=== PATIENT | male | born 1975 | race Caucasian/White ===

== ENCOUNTER 2017-11-06 16:41 | Emergency (ER) | payer MEDICAID ==
[2017-11-06] MEDS ORDERED: Sodium Chloride 0.9% 1,000 ML IV STA (17:42)
[2017-11-06 18:26] LABS: BASO # 0.1 K/uL (0.0-0.2); BASO % 0.6 % (0.0-2.0); EOS # 0.2 K/uL (0.0-0.7); EOS % 2.6 % (0.0-4.0); HEMOGLOBIN 14.4 g/dL (12.0-18.0); LYMPH % 22.5 % (20.0-40.0); MEAN CELL VOLUME 93.3 fl (80.0-94.0); MEAN CORPUSCULAR HGB CONC 33.2 g/dL (33.0-37.0); MEAN PLATELET VOLUME 8.9 fl (7.2-11.7); MONO # 0.8 K/uL (0.0-0.8); MONO % 8.9 % (0.0-10.0); NEUT % 65.4 % (50.0-75.0); RBC 4.64 Mil/uL (4.40-5.90); RED CELL DISTRIBUTION WIDTH 14.4 % (11.5-14.5); WHITE BLOOD COUNT 9.1 K/uL (4.8-10.8)
[2017-11-06 18:47] LABS: ALB/GLOB RATIO 1.1 (1.0-2.1); ALBUMIN 4.2 g/dL (3.5-5.0); ALT/SGPT 30 U/L (21-72); AST/SGOT 56 U/L (17-59); BLOOD UREA NITROGEN 13 mg/dl (9-20); CALCIUM 9.2 mg/dL (8.4-10.2); GFR AFRICAN-AMERICAN > 60; GFR NON-AFRICAN AMERICAN > 60; LIPASE 514 U/L (23-300)
[2017-11-06 19:09] LABS: SQUAMOUS EPITHIAL < 1 /hpf (0-5); URINE BILIRUBIN NEGATIVE (NEGATIVE); URINE BLOOD NEGATIVE (NEGATIVE); URINE CLARITY SLIGHTY-CLOUDY (Clear); URINE COLOR YELLOW (YELLOW); URINE GLUCOSE (UA) NEG (Normal); URINE LEUKOCYTE ESTERASE NEG Leu/uL (Negative); URINE PROTEIN 30 mg/dL (NEGATIVE); URINE UROBILINOGEN 0.2-1.0 mg/dL (0.2-1.0)
--- NOTE | 2017-11-06 19:45 | ED PDOC ---
HPI: Abdomen Time Seen by Provider: 11/06/17 16:58 Chief Complaint (Nursing): Abdominal Pain Chief Complaint (Provider): Diffuse abdominal pain, diarrhe a History Per: Patient History/Exam Limitations: no limitations Onset/Duration Of Symptoms: Days Outside of [place] travel?: No Additional Complaint(s): 42 yo male with no medical problems presents with diffuse abdominal pain and diarrhea since yesterday. No fever/chills. No blood or mucous in the diarrhea. Pt states he is able to tolerate PO. Pt states he has not drank alcohol in weeks. Past Medical History Reviewed: Historical Data, Nursing Documentation, Vital Signs Vital Signs: Last Vital Signs Temp 97.9 F 11/06/17 19:42 Pulse 72 11/06/17 19:42 Resp 18 11/06/17 19:42 BP 121/70 11/06/17 19:42 Pulse Ox 100 11/06/17 19:42 - Medical History PMH: No Chronic Diseases Denies: Chronic Kidney Disease - Surgical History Surgical History: No Surg Hx - Family History Family History: States: Unknown Family Hx - Living Arrangements Living Arrangements: With Family - Social History Current smoker - smoking cessation education provided: No - Immunization History Hx Tetanus Toxoid Vaccination: No (unknown) Hx Influenza Vaccination: No (unknown) Hx Pneumococcal Vaccination: No (unknonw) - Home Medications Home Medications: Ambulatory Orders Medication Instructions Recorded Dicyclomine [Bentyl] 20 mg PO Q6H PRN #20 tab 11/06/17 - Allergies Allergies/Adverse Reactions: Allergies Allergy/AdvReac Type Severity Reaction Status Date / Time No Known Allergies Allergy Verified 11/06/17 16:53 Review of Systems ROS Statement: Except As Marked, All Systems Reviewed And Found Negative Constitutional: Negative for: Fever, Chills Gastrointestinal: Positive for: Abdominal Pain, Diarrhea. Negative for: Nausea , Vomiting Physical Exam - Reviewed Nursing Documentation Reviewed: Yes Vital Signs Reviewed: Yes - Physical Exam Appears: Positive for: Well, Non-toxic, No Acute Distress Head Exam: Positive for: ATRAUMATIC, NORMAL INSPECTION, NORMOCEPHALIC Skin: Positive for: Normal Color, Warm, DRY Eye Exam: Positive for: Normal appearance ENT: Positive for: Normal ENT Inspection Neck: Positive for: Normal, Painless ROM Cardiovascular/Chest: Positive for: Regular Rate, Rhythm Respiratory: Positive for: CNT, Normal Breath Sounds Gastrointestinal/Abdominal: Positive for: Normal Exam, Soft. Negative for: Tenderness Back: Positive for: Normal Inspection Extremity: Positive for: Normal ROM Neurologic/Psych: Positive for: Alert, Oriented - Laboratory Results Result Diagrams: 11/06/17 18:20 11/06/17 18:20 - ECG O2 Sat by Pulse Oximetry: 100 Medical Decision Making Medical Decision Making: Pt sleeping comfortable in bed. Reports feeling better on re-evaluation. Labs normal. No episodes of diarrhea in ER. Discussed with Dr. Conklin. Disposition - Clinical Impression Clinical Impression: Viral gastroenteritis - Disposition Disposition: Routine/Home Disposition Time: 19:45 Condition: STABLE Prescriptions: Dicyclomine [Bentyl] 20 mg PO Q6H PRN #20 tab PRN Reason: Cramping Instructions: Viral Gastroenteritis
[2017-11-06 20:31] VITALS: RESP 16; TEMP 98; O2SAT 99
[2017-11-06 20:45] VITALS: BP 119/82; PULSE 88
== END 2017-11-06 20:48 | disposition home or self-care (01) ==
LOC: H.ER 16:41
DX: A08.4 Viral intestinal infection, unspecified (principal)
CPT/HCPCS: 80053; 81003; 83690; 85025; 87086; 96374; 99285; J1885; J7030

== ENCOUNTER 2018-03-12 03:02 | Emergency (ER) | payer MEDICAID, OTHER ==
[2018-03-12 03:21] VITALS: TEMP 98.2
--- NOTE | 2018-03-12 04:06 | ED PDOC ---
HPI: General Adult Time Seen by Provider: 03/12/18 03:29 Chief Complaint (Nursing): Cough, Cold, Congestion Chief Complaint (Provider): Bodyaches, chills History Per: Patient History/Exam Limitations: no limitations Onset/Duration Of Symptoms: Days Additional History Per: Patient Additional Complaint(s): 42yo male, comes to ER reporting bodyaches, chills, and states symptoms are ongoing since yesterday. He also reports a mild cough, chest pain due to the cough, nausea, and generalized malaise. Patient has not taken any medication for his symptoms. No other complaints No PMD. Past Medical History Reviewed: Historical Data, Nursing Documentation, Vital Signs Vital Signs: Last Vital Signs Temp 98.2 F 03/12/18 03:19 Pulse 96 H 03/12/18 03:19 Resp 16 03/12/18 03:19 BP 140/86 03/12/18 03:19 Pulse Ox 98 03/12/18 03:19 - Medical History PMH: No Chronic Diseases Denies: Chronic Kidney Disease - Surgical History Surgical History: No Surg Hx - Family History Family History: States: Unknown Family Hx - Immunization History Hx Tetanus Toxoid Vaccination: No (unknown) Hx Influenza Vaccination: No (unknown) Hx Pneumococcal Vaccination: No (unknonw) - Home Medications Home Medications: Ambulatory Orders Medication Instructions Recorded Dicyclomine [Bentyl] 20 mg PO Q6H PRN #20 tab 11/06/17 Azithromycin [Z-Wil] 250 mg PO ASDIR #6 tab 03/12/18 - Allergies Allergies/Adverse Reactions: Allergies Allergy/AdvReac Type Severity Reaction Status Date / Time No Known Allergies Allergy Verified 03/12/18 03:19 Review of Systems ROS Statement: Except As Marked, All Systems Reviewed And Found Negative Constitutional: Positive for: Fever, Chills, Weakness Respiratory: Positive for: Cough Gastrointestinal: Positive for: Nausea Physical Exam - Reviewed Nursing Documentation Reviewed: Yes Vital Signs Reviewed: Yes - Physical Exam Appears: Positive for: Non-toxic, No Acute Distress Head Exam: Positive for: ATRAUMATIC, NORMAL INSPECTION, NORMOCEPHALIC Skin: Positive for: Normal Color Eye Exam: Positive for: Normal appearance, EOMI, PERRL ENT: Positive for: Normal ENT Inspection. Negative for: Pharyngeal Erythema, Tonsillar Exudate, Tonsillar Swelling Neck: Positive for: Normal, Supple Cardiovascular/Chest: Positive for: Regular Rate, Rhythm Respiratory: Positive for: Normal Breath Sounds Gastrointestinal/Abdominal: Positive for: Normal Exam, Soft Back: Positive for: Normal Inspection Extremity: Positive for: Normal ROM Neurologic/Psych: Positive for: Alert, Oriented. Negative for: Motor/Sensory Deficits - ECG O2 Sat by Pulse Oximetry: 98 (RA) Pulse Ox Interpretation: Normal - Progress Re-evaluation Time: 05:36 Condition: Re-examined, Improved Medical Decision Making Medical Decision Making: Impression: Viral syndrome, URI, r/o Pneumonia Plan: -- Labs -- Rapid strep -- Rapid Flu -- Urine drug screen -- Motrin 400mg PO -- Pepcid 20mg PO 0610 Patient negative for strep. Patient negative for flu. Patient remains awake, alert, oriented x 3 and is laying in bed comfortably; patient is stable for discharge home. Scribe Attestation: Documented by Melisa Hoover, acting as a scribe for Harleen Conklin MD. Provider Scribe Attestation: All medical record entries made by the Scribe were at my direction and personally dictated by me. I have reviewed the chart and agree that the record accurately reflects my personal performance of the history, physical exam, medical decision making, and the department course for this patient. I have also personally directed, reviewed, and agree with the discharge instructions and disposition. Disposition - Clinical Impression Clinical Impression: Flu-like symptoms, URI (upper respiratory infection) - Patient ED Disposition Is Patient to be Admitted: No Doctor Will See Patient In The: Office Counseled Patient/Family Regarding: Studies Performed, Diagnosis, Need For Followup - Disposition Referrals: [facility] [Outside] Disposition: Routine/Home Disposition Time: 05:42 Condition: GOOD Additional Instructions: AVRIL BURRELL, thank you for letting us take care of you today. Your provider was Harleen Conklin MD and you were treated for FEELS WEAK. The emergency medical care you received today was directed at your acute symptoms. If you were prescribed any medication, please fill it and take as directed. It may take several days for your symptoms to resolve. Return to the Emergency Department if your symptoms worsen, do not improve, or if you have any other problems. Please contact your doctor or call one of the physicians/clinics you have been referred to that are listed on the Patient Visit Information form that is included in your discharge packet. Bring any paperwork you were given at discharge with you along with any medications you are taking to your follow up visit. Our treatment cannot replace ongoing medical care by a primary care provider outside of the emergency department. Thank you for allowing the [facility] team to be part of your care today. If you had an X-Ray or CT scan: A Radiologist will review the ED reading if any change in treatment is needed we will contact you. If you had a blood, urine, or wound culture: It will take several days for the results, if any change in treatment is needed we will contact you. If you had an STI test: It will take 48 hours for the results. Please call after 1 week if you have not heard back. Prescriptions: Azithromycin [Z-Wil] 250 mg PO ASDIR #6 tab Instructions: Acute Bronchitis
[2018-03-12 06:54] VITALS: BP 138/64; PULSE 88; RESP 22; O2SAT 99
--- NOTE | 2018-03-12 08:19 | RAD ---
Date of service: 03/12/2018 HISTORY: fever cough COMPARISON: No prior. TECHNIQUE: Chest PA and lateral FINDINGS: LUNGS: No active pulmonary disease. PLEURA: No significant pleural effusion identified. No pneumothorax apparent. CARDIOVASCULAR: No aortic atherosclerotic calcification present. Normal cardiac size. No pulmonary vascular congestion. OSSEOUS STRUCTURES: No significant abnormalities. VISUALIZED UPPER ABDOMEN: Normal. OTHER FINDINGS: None. IMPRESSION: No acute cardiopulmonary disease appreciated.
== END 2018-03-12 06:54 | disposition home or self-care (01) ==
LOC: H.ER 03:02
DX: J06.9 Acute upper respiratory infection, unspecified (principal); J11.1 Influenza due to unidentified influenza virus with other respiratory manifestations

== ENCOUNTER 2018-03-30 11:33 | Emergency (ER) | payer MEDICAID, OTHER ==
[2018-03-30 12:01] VITALS: BMI 21.1
[2018-03-30 12:03] VITALS: BP 143/86; PULSE 96; RESP 20; TEMP 97; O2SAT 98
[2018-03-30] MEDS ORDERED: Albuterol-Ipratrop 3 mg / 0.5 (3 ml) UD INH STA (12:48)
[2018-03-30] MEDS ORDERED: Albuterol 0.083% Inhal Sol (2.5 mg/3 mL) UD INH STA (12:48)
[2018-03-30] MEDS ORDERED: Albuterol 0.083% Inhal Sol (2.5 mg/3 mL) UD ONE (13:18)
--- NOTE | 2018-03-30 13:59 | ED PDOC ---
HPI: CCC, URI, Sore Throat Time Seen by Provider: 03/30/18 12:16 Chief Complaint (Nursing): Flu-like Symptoms Chief Complaint (Provider): Cough, Throat Pain, Bodyaches History Per: Patient History/Exam Limitations: no limitations Have you had recent travel within the past 21 days to any of the following countries: [place], [place], [place] or [place]?: No Onset/Duration Of Symptoms: Days (1x week) Current Symptoms Are (Timing): Still Present Location Of Pain: Throat Associated Symptoms: Fever (tactile), Chills (bodyaches), Sore Throat, Cough (dry). denies: Neck Pain ((-) stiffness), Nausea, Vomiting, Diarrhea, Other (urinary symptoms, headache, dizziness, abdominal pain) Severity: Moderate Additional Complaint(s): 42 year old male with no past medical history presents to the ED for an evaluation of a dry cough that started 1x week ago. Patient reports having associated symptoms of throat pain, bodyaches, a tactile fever, and chills. Patient report staking over the counter cough syrup with no relief of symptoms. Otherwise: (-) recent travel, (-) nausea, (-) vomiting, (-) diarrhea, (-) abdominal pain, (-) urinary symptoms, (-) neck pain, (-) neck stiffness, (- )headaches, (-) dizziness, (-) chest pain, (-) dyspnea, (-) hemoptysis, (-) upper back pain, (-) recent prolonged immobility. PMD: None. Past Medical History Reviewed: Historical Data, Nursing Documentation, Vital Signs Vital Signs: Last Vital Signs Temp 97 F L 03/30/18 12:01 Pulse 96 H 03/30/18 12:01 Resp 20 03/30/18 12:01 BP 143/86 03/30/18 12:01 Pulse Ox 98 03/30/18 12:01 - Medical History PMH: No Chronic Diseases - Surgical History Other surgeries: fractured jaw repair - Family History Family History: States: Unknown Family Hx - Social History Current smoker - smoking cessation education provided: Yes (5x cigarettes daily) Alcohol: Social Drugs: Cannabis (daily) - Home Medications Home Medications: Ambulatory Orders Medication Instructions Recorded Dicyclomine [Bentyl] 20 mg PO Q6H PRN #20 tab 07/02/18 Acetaminophen [Acetaminophen 8 650 mg PO Q8 PRN #21 tablet.er 03/30/18 Hour] Albuterol Sulfate [Ventolin Hfa] 1 puff IH DAILY PRN #1 unit 03/30/18 Fluticasone Nasal [Flonase] 1 actuation NS DAILY #1 unit 03/30/18 RX: Azithromycin [Z-Wil] 250 mg PO DAILY #6 tab 03/30/18 RX: Promethazine DM [Phenergan DM 5 ml PO Q6 PRN #150 ml 03/30/18 Syrup] - Allergies Allergies/Adverse Reactions: Allergies Allergy/AdvReac Type Severity Reaction Status Date / Time No Known Allergies Allergy Verified 03/30/18 12:09 Review of Systems ROS Statement: Except As Marked, All Systems Reviewed And Found Negative Constitutional: Positive for: Fever (tactile), Chills, Other (bodyaches) ENT: Positive for: Throat Pain Cardiovascular: Negative for: Chest Pain Respiratory: Positive for: Cough (dry). Negative for: Shortness of Breath, Hemoptysis Gastrointestinal: Negative for: Nausea, Vomiting, Abdominal Pain, Diarrhea Genitourinary Male: Negative for: Dysuria, Frequency Musculoskeletal: Negative for: Neck Pain ((-) neck stiffness) Neurological: Negative for: Headache, Dizziness Physical Exam - Reviewed Nursing Documentation Reviewed: Yes Vital Signs Reviewed: Yes - Physical Exam Comments: GENERAL APPEARANCE: Patient is awake, alert, oriented x 3, resting comfortably, in no acute distress. SKIN: Warm, dry; (-) cyanosis. ENMT: Mucous membranes moist. Airway patent: (-) stridor. Nose: (+) clear rhinorrhea. Pharynx: (+) erythema, (-) exudate, (-) swelling. TMs: (-)bulging, (-) erythema. Ear canals patent (-) vesicles (-) cerumen impaction (-) erythema (-) exudate. (-) Sinus tenderness. NECK: Supple, FROM (-) tenderness, (-) stiffness, (-) lymphadenopathy. CHEST AND RESPIRATORY: (-) rales, (-) wheezes; right middle and lower lobe: (+) rhonchi. Respirations even and non-labored, speaking in full sentences. HEART AND CARDIOVASCULAR: (-) irregularity ABDOMEN: Soft (-) tenderness (-) distention EXTREMITIES: (-) deformity; (-) edema. NEURO AND PSYCH: Mental status as above. Cranial nerves grossly intact. Gait: steady. Speech: clear. (-) facial asymmetry - ECG O2 Sat by Pulse Oximetry: 98 (RA) Pulse Ox Interpretation: Normal Medical Decision Making Medical Decision Makin Clinical impression: 42 year old male with cough, bodyaches, tobacco abuse; rule out pneumonia. Initial plan: * XRay chest 2 views * albuterol 0.083% inhal soln UD 2.5 mg INH * duoneb 3 ml UD 3 ml INH * toradol 30 mg IM once * influenza A B * rapid strep a antigen 1345 Rapid Strep: Negative Influenza: Negative CXR: (+) RML perihilar thickening Azithromycin 500mg PO ordered. 1400 On re-evaluation, patient reports improvement of symptoms. On exam, patient remains AAOx3, in no acute distress. Lungs clear to auscultation, cardiac RRR, repeat neuro exam shows no focal findings. Vitals stable. Lab/Diagnostic results d/w the patient in great detail. Diagnosis of cough, congestion, bodyaches, bronchitis; tobacco abuse d/w the patient. Based on history, exam and diagnostic results, plan will be for outpatient follow up with clinic. Patient instructed to follow-up with pmd / referral provided / the clinic in 1- 2 days without fail. Advised to take medication as prescribed. Return to the emergency room at any time for any new or worsening symptoms. Patient states he fully agrees with and understands discharge instructions. States that he agrees with the plan and disposition. Verbalized and repeated discharge instructions and plan. I have given the patient opportunity to ask any additional questions. Scribe Attestation: Documented by Martina Davis, acting as a scribe for Martina Granado Provider Scribe Attestation: All medical record entries made by the Scribe were at my direction and personally dictated by me. I have reviewed the chart and agree that the record accurately reflects my personal performance of the history, physical exam, medical decision making, and the department course for this patient. I have also personally directed, reviewed, and agree with the discharge instructions and disposition. Disposition - Clinical Impression Clinical Impression: Cough in adult, Nasal congestion, Bronchitis, Tobacco abuse - Patient ED Disposition Is Patient to be Admitted: No Counseled Patient/Family Regarding: Studies Performed, Diagnosis, Need For Followup, Rx Given, Smoking Cessation - Disposition Referrals: [facility] [Outside] Disposition: Routine/Home Disposition Time: 14:00 Condition: STABLE Additional Instructions: The emergency medical care you received today was directed at your acute symptoms. If you were prescribed any medication, please fill it and take as directed. It may take several days for your symptoms to resolve. Return to the Emergency Department if your symptoms worsen, do not improve, or if you have any other problems. Please contact your doctor in 2 days for re-evaluation and follow up / or call one of the physicians/clinics you have been referred to that are listed on the Patient Visit Information form that is included in your discharge packet. Bring any paperwork you were given at discharge with you along with any medications you are taking to your follow up visit. Our treatment cannot replace ongoing medical care by a primary care provider (PCP) outside of the emergency department. Prescriptions: Acetaminophen [Acetaminophen 8 Hour] 650 mg PO Q8 PRN #21 tablet.er PRN Reason: bodyaches Albuterol Sulfate [Ventolin Hfa] 1 puff IH DAILY PRN #1 unit PRN Reason: Shortness Of Breath RX: Azithromycin [Z-Wil] 250 mg PO DAILY #6 tab Fluticasone Nasal [Flonase] 1 actuation NS DAILY #1 unit RX: Promethazine DM [Phenergan DM Syrup] 5 ml PO Q6 PRN #150 ml PRN Reason: Cough Instructions: Cough in Adults, Smoking: Not Just Harmful to Your Lungs and Heart, Acute Bronchitis Forms: [facility] (Urdu) Print Language: [place] - POA Present On Arrival: None Results - Lab Results Lab Results: 03/30/18 03/30/18 12:55 12:55 Influenza Typ A,B (EIA) Negative for flu a/b Grp A Beta Strep Ag Negative
--- NOTE | 2018-03-30 14:38 | RAD ---
Date of service: 03/30/2018 HISTORY: cough r/o pna COMPARISON: 03/12/2018 TECHNIQUE: Chest PA and lateral FINDINGS: LUNGS: No pulmonary infiltrate. Several small calcified granulomas in both upper lobes. PLEURA: No significant pleural effusion identified. No pneumothorax apparent. CARDIOVASCULAR: No aortic atherosclerotic calcification present. Normal cardiac size. No pulmonary vascular congestion. OSSEOUS STRUCTURES: No significant abnormalities. VISUALIZED UPPER ABDOMEN: Normal. OTHER FINDINGS: None. IMPRESSION: No active disease.
== END 2018-03-30 14:17 | disposition home or self-care (01) ==
LOC: H.ER 11:33
DX: M79.10 Myalgia, unspecified site (principal); R05 Cough; R09.81 Nasal congestion; J40 Bronchitis, not specified as acute or chronic; F17.210 Nicotine dependence, cigarettes, uncomplicated
CPT/HCPCS: 71046; 87070; 87430; 87804; 94640; 96372; 99282; J1885

== ENCOUNTER 2018-05-17 11:23 | Emergency (ER) | payer MEDICAID, OTHER ==
[2018-05-17 11:23] VITALS: BMI 21.1
[2018-05-17 11:54] VITALS: RESP 18
[2018-05-17] MEDS ORDERED: Amoxicillin-Clav 875-125 mg Tab PO STA (13:18)
[2018-05-17] MEDS ORDERED: Amoxicillin-Clav 875-125 mg Tab PO ONE (13:29)
--- NOTE | 2018-05-17 13:38 | ED PDOC ---
HPI: Dental Pain/Injury Time Seen by Provider: 05/17/18 12:17 Chief Complaint (Nursing): Dental Pain Chief Complaint (Provider): Dental Pain History Per: Patient History/Exam Limitations: no limitations Onset/Duration Of Symptoms: Days (x2) Current Symptoms Are (Timing): Still Present Additional Complaint(s): 42 year old male with a history of dental infections presents to the ED for evaluation of a right sided upper toothache, described as sharp, shooting pain, for the past two days, which radiates to the jaw. Denies taking meds prior to arrival, recent dental work, fever, throat pain, dysphagia, drooling, muffled voice. PMD: none provided Past Medical History Reviewed: Historical Data, Nursing Documentation, Vital Signs Vital Signs: Last Vital Signs Temp 98.7 F 05/17/18 11:54 Pulse 70 05/17/18 11:54 Resp 18 05/17/18 11:54 BP 137/84 05/17/18 11:54 Pulse Ox 99 05/17/18 11:54 - Medical History PMH: No Chronic Diseases - Surgical History Other surgeries: plate in jaw s/p fracture repair - Family History Family History: States: Unknown Family Hx - Social History Current smoker - smoking cessation education provided: Yes (3-4 cigs daily) Alcohol: Social Drugs: Cocaine, Opiates, Other (benzos) - Home Medications Home Medications: Ambulatory Orders Medication Instructions Recorded Dicyclomine [Bentyl] 20 mg PO Q6H PRN #20 tab 11/06/17 Acetaminophen [Acetaminophen 8 650 mg PO Q8 PRN #21 tablet.er 03/30/18 Hour] Albuterol Sulfate [Ventolin Hfa] 1 puff IH DAILY PRN #1 unit 03/30/18 Fluticasone Nasal [Flonase] 1 actuation NS DAILY #1 unit 03/30/18 RX: Azithromycin [Z-Wil] 250 mg PO DAILY #6 tab 03/30/18 RX: Promethazine DM [Phenergan DM 5 ml PO Q6 PRN #150 ml 03/30/18 Syrup] Acetaminophen [Acetaminophen 8 650 mg PO Q8 PRN #21 tablet.er 05/17/18 Hour] Amoxicillin/Clavulanate [Augmentin 1 tab PO BID #14 tab 05/17/18 875 MG-125 MG] RX: Naproxen 500 mg PO BID PRN #20 tab 05/17/18 - Allergies Allergies/Adverse Reactions: Allergies Allergy/AdvReac Type Severity Reaction Status Date / Time No Known Allergies Allergy Verified 05/17/18 12:25 Review of Systems ROS Statement: Except As Marked, All Systems Reviewed And Found Negative Constitutional: Negative for: Fever ENT: Positive for: Other (sharp right sided upper toothache radiating to jaw). Negative for: Throat Pain (or trouble swallowing) Physical Exam - Reviewed Nursing Documentation Reviewed: Yes Vital Signs Reviewed: Yes - Physical Exam Comments: GENERAL APPEARANCE: Patient is awake, alert, oriented x 3, in no acute distress. Resting comfortably. SKIN: Warm, dry; (-) cyanosis. NECK: Supple, FROM ENMT: (-) sinus swelling or tenderness. Upper right second premolar: (+) cracked dentition and dental rot with surrounding gingival erythema, tenderness, and mild edema (-) fluctuance. (+) Poor oral dentition throughout with multiple caries and multiple extracted teeth. Pharynx: clear, uvula midline (-) exudate, (-) erythema (-) tongue elevation. Airway patent: (-) stridor. (-) Submandibular or submental neck swelling (-) pseudomembranes NECK: Supple, FROM (-) tenderness, (-) crepitus. HEART: regular rate and rhythm LUNGS: lung sounds clear to auscultation bilaterally (-) rales (-) rhonchi (-) wheezing - ECG O2 Sat by Pulse Oximetry: 99 (RA) Pulse Ox Interpretation: Normal Medical Decision Making Medical Decision Making: Initial Impression: dental pain, cracked tooth, probable dental infection Time: 1315 Initial Plan: --Augmentin 1 tab PO --Toradol 30mg IM --Re-evaluation 1400 On re-evaluation, patient reports improvement of symptoms. On exam, patient remains AAOx3, in no acute distress. Vitals stable. Lab/Diagnostic results d/w the patient in great detail. Diagnosis of toothache, cracked tooth, probable dental infection d/w the patient. Based on history, exam and diagnostic results, plan will be for outpatient follow up with dental. Patient instructed to follow-up with pmd / referral provided / the clinic in 1- 2 days without fail. Advised to take medication as prescribed. Return to the emergency room at any time for any new or worsening symptoms. Patient states he fully agrees with and understands discharge instructions. States that he agrees with the plan and disposition. Verbalized and repeated discharge instructions and plan. I have given the patient opportunity to ask any additional questions. Scribe Attestation: Documented by Elise Talamantes, acting as a scribe for Martina Hernandez PA-C. Provider Scribe Attestation: All medical record entries made by the Scribe were at my direction and personally dictated by me. I have reviewed the chart and agree that the record accurately reflects my personal performance of the history, physical exam, medical decision making, and the department course for this patient. I have also personally directed, reviewed, and agree with the discharge instructions and disposition. Disposition - Clinical Impression Clinical Impression: Dental caries, Cracked tooth, Dental infection - Patient ED Disposition Is Patient to be Admitted: No Counseled Patient/Family Regarding: Studies Performed, Diagnosis, Need For Followup, Rx Given - Disposition Referrals: your, dentist [Other] [facility] [Outside] Disposition: Routine/Home Disposition Time: 14:05 Condition: STABLE Additional Instructions: The emergency medical care you received today was directed at your acute symptoms. If you were prescribed any medication, please fill it and take as directed. It may take several days for your symptoms to resolve. Return to the Emergency Department if your symptoms worsen, do not improve, or if you have any other problems. Please contact your doctor in 2 days for re-evaluation and follow up / or call one of the physicians/clinics you have been referred to that are listed on the Patient Visit Information form that is included in your discharge packet. Bring any paperwork you were given at discharge with you along with any medications you are taking to your follow up visit. Our treatment cannot replace ongoing medical care by a primary care provider (PCP) outside of the emergency department. Prescriptions: Acetaminophen [Acetaminophen 8 Hour] 650 mg PO Q8 PRN #21 tablet.er PRN Reason: Pain, Moderate (4-7) Amoxicillin/Clavulanate [Augmentin 875 MG-125 MG] 1 tab PO BID #14 tab RX: Naproxen 500 mg PO BID PRN #20 tab PRN Reason: Pain, Moderate (4-7) Instructions: Tooth Decay, Adult, Tooth Abscess (DC), Fractured Tooth, Dental Pain (DC) Forms: [facility] (Swedish) Print Language: GREENLANDIC - POA Present On Arrival: None
[2018-05-17 14:26] VITALS: BP 128/78; PULSE 78; TEMP 98
[2018-05-20 21:06] VITALS: O2SAT 99
== END 2018-05-17 14:25 | disposition home or self-care (01) ==
LOC: H.ER 11:23
DX: K02.9 Dental caries, unspecified (principal); K03.81 Cracked tooth; K04.7 Periapical abscess without sinus; R13.10 Dysphagia, unspecified
CPT/HCPCS: 96372; 99282; J1885

== ENCOUNTER 2018-07-01 22:46 | Emergency (ER) | payer MEDICAID ==
[2018-07-01 22:46] VITALS: BMI 21.1
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
--- NOTE | 2018-07-02 00:58 | ED PDOC ---
- ECG O2 Sat by Pulse Oximetry: 97 Medical Decision Making Medical Decision Making: Sign out taken from Josr Carrasco at 0010 Pt has been psychologiclaly cleared for discharge Disposition - Clinical Impression Clinical Impression: Drug abuse, Medical clearance for incarceration - POA Present On Arrival: None - Disposition Disposition: Routine/Home Disposition Time: 00:57 Condition: STABLE Additional Instructions: Pt is medically and psychologically cleared for incarceration Instructions: General (DC) Forms: [employer] (Stateless)
[2018-07-02 02:57] VITALS: BP 102/42; PULSE 91; RESP 18; TEMP 98.4; O2SAT 98
== END 2018-07-02 01:10 ==
LOC: H.ER 22:46
DX: F19.10 Other psychoactive substance abuse, uncomplicated (principal); Z00.00 Encounter for general adult medical examination without abnormal findings

== ENCOUNTER 2018-07-19 02:34 | Emergency (ER) | payer MEDICAID ==
[2018-07-19 02:34] VITALS: BMI 21.1
[2018-07-19 03:12] VITALS: O2SAT 98
--- NOTE | 2018-07-19 03:29 | ED PDOC ---
HPI: Abdomen Time Seen by Provider: 07/19/18 03:06 Chief Complaint (Nursing): Abdominal Pain Chief Complaint (Provider): abdominal pain History Per: Patient History/Exam Limitations: no limitations Onset/Duration Of Symptoms: Hrs (6) Current Symptoms Are (Timing): Still Present Location Of Pain/Discomfort: Diffuse Additional Complaint(s): 42 y/o male presents for evaluation of abdominal cramping x 6 hours. Denies fever, nausea/vomiting, chest pain, shortness of breath, palpitations, changes in bowel movements, urinary symptoms. Past Medical History Reviewed: Historical Data, Nursing Documentation, Vital Signs Vital Signs: Last Vital Signs Temp 98.7 F 07/19/18 03:10 Pulse 71 07/19/18 03:10 Resp 16 07/19/18 03:10 BP 140/72 07/19/18 03:10 Pulse Ox 98 07/19/18 03:10 - Medical History PMH: No Chronic Diseases Denies: Diabetes, Hepatitis, HIV, HTN, Chronic Kidney Disease, Seizures, Sexually Transmitted Disease - Family History Family History: States: Unknown Family Hx - Social History Current smoker - smoking cessation education provided: Yes Ex-Smoker (has not smoked in the last 12 months): No Alcohol: None - Immunization History Hx Tetanus Toxoid Vaccination: No (unknown) Hx Influenza Vaccination: No (unknown) Hx Pneumococcal Vaccination: No (unknonw) - Home Medications Home Medications: Ambulatory Orders Medication Instructions Recorded Dicyclomine [Bentyl] 20 mg PO Q6H PRN #20 tab 11/06/17 Acetaminophen [Acetaminophen 8 650 mg PO Q8 PRN #21 tablet.er 03/30/18 Hour] Albuterol Sulfate [Ventolin Hfa] 1 puff IH DAILY PRN #1 unit 03/30/18 Azithromycin [Z-Wil] 250 mg PO DAILY #6 tab 03/30/18 Fluticasone Nasal [Flonase] 1 actuation NS DAILY #1 unit 03/30/18 Promethazine DM [Phenergan DM 5 ml PO Q6 PRN #150 ml 03/30/18 Syrup] Acetaminophen [Acetaminophen 8 650 mg PO Q8 PRN #21 tablet.er 05/17/18 Hour] Amoxicillin/Clavulanate [Augmentin 1 tab PO BID #14 tab 05/17/18 875 MG-125 MG] Naproxen 500 mg PO BID PRN #20 tab 05/17/18 - Allergies Allergies/Adverse Reactions: Allergies Allergy/AdvReac Type Severity Reaction Status Date / Time No Known Allergies Allergy Verified 07/01/18 22:52 Review of Systems ROS Statement: Except As Marked, All Systems Reviewed And Found Negative Gastrointestinal: Positive for: Abdominal Pain Physical Exam - Reviewed Nursing Documentation Reviewed: Yes Vital Signs Reviewed: Yes - Physical Exam Appears: Positive for: Well, Non-toxic, No Acute Distress Head Exam: Positive for: ATRAUMATIC, NORMAL INSPECTION, NORMOCEPHALIC Skin: Positive for: Normal Color Eye Exam: Positive for: Normal appearance ENT: Positive for: Normal ENT Inspection Cardiovascular/Chest: Positive for: Regular Rate, Rhythm Respiratory: Positive for: Normal Breath Sounds Gastrointestinal/Abdominal: Positive for: Bowel Sounds, Soft, Tenderness (diffuse discomfort). Negative for: Distended, Guarding, Rebound Back: Positive for: Normal Inspection Extremity: Positive for: Normal ROM Neurological/Psych: Positive for: Awake, Alert, Oriented (x3) - Laboratory Results Result Diagrams: 07/19/18 03:50 07/19/18 03:50 - ECG O2 Sat by Pulse Oximetry: 98 - Progress ED Course And Treament: -cbc -cmp -lipase -bentyl PO Patient sleeping throughout ED visit; states pain improved Patient educated on findings, discharged with instructions to follow up PMD within 2-3 days Return precautions given Disposition - Clinical Impression Clinical Impression: Abdominal pain - Patient ED Disposition Is Patient to be Admitted: No Counseled Patient/Family Regarding: Studies Performed, Diagnosis, Need For Followup - Disposition Referrals: [facility] [Outside] Disposition: Routine/Home Disposition Time: 04:36 Condition: IMPROVED Instructions: Acute Abdomen (Belly Pain)
[2018-07-19 04:13] LABS: BASO # 0.1 K/uL (0.0-0.2); BASO % 0.6 % (0.0-2.0); EOS # 0.1 K/uL (0.0-0.7); EOS % 1.2 % (0.0-4.0); LYMPH # 1.8 K/uL (1.0-4.3); LYMPH % 18.9 % (20.0-40.0); MEAN CELL VOLUME 90.8 fl (80.0-94.0); MEAN CORPUSCULAR HEMOGLOBIN 30.2 pg (27.0-31.0); MEAN CORPUSCULAR HGB CONC 33.3 g/dL (33.0-37.0); MEAN PLATELET VOLUME 8.4 fl (7.2-11.7); MONO # 0.8 K/uL (0.0-0.8); MONO % 8.7 % (0.0-10.0); NEUT # 6.8 K/uL (1.8-7.0); NEUT % 70.6 % (50.0-75.0); NRBC % 0.1 % (0.0-0.0); RBC 4.64 Mil/uL (4.40-5.90); WHITE BLOOD COUNT 9.7 K/uL (4.8-10.8)
[2018-07-19 04:33] LABS: ALB/GLOB RATIO 1.3 (1.0-2.1); ALBUMIN 4.2 g/dL (3.5-5.0); ALT/SGPT 35 U/L (21-72); AST/SGOT 35 U/L (17-59); BLOOD UREA NITROGEN 18 mg/dl (9-20); CALCIUM 9.4 mg/dL (8.4-10.2); GFR NON-AFRICAN AMERICAN > 60; LIPASE 185 U/L (23-300)
[2018-07-19 05:57] VITALS: BP 108/70; PULSE 61; RESP 18; TEMP 97.6
== END 2018-07-19 06:00 | disposition home or self-care (01) ==
LOC: H.ER 02:34
DX: R10.9 Unspecified abdominal pain (principal)

== ENCOUNTER 2018-08-21 01:39 | Emergency (ER) | payer MEDICAID ==
[2018-08-21 01:40] VITALS: BMI 21.1
[2018-08-21 02:48] VITALS: PULSE 68; RESP 18; TEMP 97.9; O2SAT 98
--- NOTE | 2018-08-21 03:34 | ED PDOC ---
HPI: Skin/Bite Injury Time Seen by Provider: 08/21/18 03:14 Chief Complaint (Nursing): Abnormal Skin Integrity Chief Complaint (Provider): rash History Per: Patient History/Exam Limitations: no limitations Onset/Duration Of Symptoms: Days (4) Current Symptoms Are (Timing): Still Present Quality Of Symptoms: Itching Additional Complaint(s): 42 y/o male presents for evaluation of pruritic rash to back x 4 days. Denies fever, drainage from site, known allergen. Past Medical History Reviewed: Historical Data, Nursing Documentation, Vital Signs Vital Signs: Last Vital Signs Temp 97.9 F 08/21/18 02:46 Pulse 68 08/21/18 02:46 Resp 18 08/21/18 02:46 BP Pulse Ox 98 08/21/18 02:46 - Medical History PMH: Bronchitis Denies: Diabetes, Hepatitis, HIV, HTN, Chronic Kidney Disease, Seizures, Sexually Transmitted Disease - Family History Family History: States: Unknown Family Hx - Immunization History Hx Tetanus Toxoid Vaccination: No (unknown) Hx Influenza Vaccination: No (unknown) Hx Pneumococcal Vaccination: No (unknonw) - Home Medications Home Medications: Ambulatory Orders Medication Instructions Recorded Dicyclomine [Bentyl] 20 mg PO Q6H PRN #20 tab 11/06/17 Acetaminophen [Acetaminophen 8 650 mg PO Q8 PRN #21 tablet.er 03/30/18 Hour] Albuterol Sulfate [Ventolin Hfa] 1 puff IH DAILY PRN #1 unit 03/30/18 Azithromycin [Z-Wil] 250 mg PO DAILY #6 tab 03/30/18 Fluticasone Nasal [Flonase] 1 actuation NS DAILY #1 unit 03/30/18 Promethazine DM [Phenergan DM 5 ml PO Q6 PRN #150 ml 03/30/18 Syrup] Acetaminophen [Acetaminophen 8 650 mg PO Q8 PRN #21 tablet.er 05/17/18 Hour] Amoxicillin/Clavulanate [Augmentin 1 tab PO BID #14 tab 05/17/18 875 MG-125 MG] Naproxen 500 mg PO BID PRN #20 tab 05/17/18 Hydrocortisone 1% Cream [Cortizone 1 appl TP BID #1 tube 08/21/18 1% Cream] - Allergies Allergies/Adverse Reactions: Allergies Allergy/AdvReac Type Severity Reaction Status Date / Time No Known Allergies Allergy Verified 07/01/18 22:52 Review of Systems ROS Statement: Except As Marked, All Systems Reviewed And Found Negative Skin: Positive for: Rash Physical Exam - Reviewed Nursing Documentation Reviewed: Yes Vital Signs Reviewed: Yes - Physical Exam Appears: Positive for: Well, Non-toxic, No Acute Distress Head Exam: Positive for: ATRAUMATIC, NORMAL INSPECTION, NORMOCEPHALIC Skin: Positive for: Rash (papular rash to upper back with intermittent scabbed abrasions; no lesions, vesicles, erythema or skin warmth noted) Eye Exam: Positive for: Normal appearance ENT: Positive for: Normal ENT Inspection Cardiovascular/Chest: Positive for: Regular Rate, Rhythm Respiratory: Positive for: Normal Breath Sounds Gastrointestinal/Abdominal: Positive for: Normal Exam Back: Positive for: Normal Inspection Extremity: Positive for: Normal ROM Neurological/Psych: Positive for: Awake, Alert, Oriented (x3) - ECG O2 Sat by Pulse Oximetry: 98 - Progress ED Course And Treament: -Benadryl PO Patient educated on findings, discharged with rx Hydrocortisone crm Follow up PMD within 2-3 days Return precautions given Disposition - Clinical Impression Clinical Impression: Rash and nonspecific skin eruption - Patient ED Disposition Is Patient to be Admitted: No Counseled Patient/Family Regarding: Diagnosis, Need For Followup, Rx Given - Disposition Referrals: [facility] [Outside] Disposition: Routine/Home Disposition Time: 04:30 Condition: IMPROVED Prescriptions: Hydrocortisone 1% Cream [Cortizone 1% Cream] 1 appl TP BID #1 tube Instructions: Skin Rash
== END 2018-08-21 05:39 | disposition home or self-care (01) ==
LOC: H.ER 01:39
DX: R21 Rash and other nonspecific skin eruption (principal)

== ENCOUNTER 2018-09-26 22:40 | Emergency (ER) | payer MEDICAID ==
[2018-09-26 22:40] VITALS: BMI 21.1
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
[2018-09-27 05:23] VITALS: BP 118/70; PULSE 73; RESP 17; TEMP 98; O2SAT 99
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
== END 2018-09-27 05:23 | disposition home or self-care (01) ==
LOC: H.ER 22:40
DX: S09.90XA Unspecified injury of head, initial encounter (principal); S00.01XA Abrasion of scalp, initial encounter; F10.10 Alcohol abuse, uncomplicated